=== PATIENT | female | born 1940 | race Caucasian/White ===

== ENCOUNTER 2025-02-07 11:15 | Inpatient (IN) ==
[2025-02-07 15:21] LABS: Basophils # (Auto) 0.04 K/mcL (0.00-0.30); Basophils % (Auto) 0.6 % (0.0-2.0); Eosinophils # (Auto) 0.05 K/mcL (0.00-0.70); Eosinophils % (Auto) 0.8 % (0.0-7.0); Hematocrit 41.8 % (34.1-44.9); Hemoglobin 13.6 g/dL (11.2-15.7); Lymphocytes # (Auto) 1.66 K/mcL (1.50-4.80); Lymphocytes % (Auto) 25.7 % (15.5-49.0); Mean Corpuscular HGB Conc 32.5 g/dL (31.0-36.0); Monocytes # (Auto) 0.43 K/mcL (0.10-0.90); Monocytes % (Auto) 6.6 % (1.0-12.0); Neutrophils % (Auto) 66.3 % (38.0-78.0); Platelet Count 113 K/mcL (140-440); RBC 4.38 M/mcL (3.59-5.38); WBC 6.5 K/mcL (4.5-11.0)
[2025-02-07 15:28] LABS: ALT/SGPT 9 U/L (<40); AST/SGOT 18 U/L (<32); Albumin 3.7 gm/dL (3.2-5.2); Albumin/Globulin Ratio 1.5 (1.0-2.3); Alkaline Phosphatase 78 U/L (39-117); Anion Gap 9.0 (8.0-16.0); Bilirubin,Total 0.4 mg/dL (0.1-1.0); Blood Urea Nitrogen 20 mg/dL (8-23); Calcium 9.1 mg/dL (8.6-10.4); Carbon Dioxide 26 mmol/L (22-30); Chloride 108 mmol/L (96-108); Globulin 2.5 gm/dL (2.2-3.7); Glucose 88 mg/dL (70-105); Potassium 4.0 mmol/L (3.3-5.1); Sodium 143 mmol/L (133-145)
[2025-02-07] MEDS ORDERED: POTASSIUM CHLORIDE 40 MEQ in DEXTROSE 5% IN WATER 500 ML IV PRN (16:44)
[2025-02-07] MEDS ORDERED: POLYETHYLENE GLYCOL 3350 17 GM PACKET PO PRN (16:44)
[2025-02-07] MEDS ORDERED: METOCLOPRAMIDE 10 MG/2 ML VIAL IV PRN (16:44)
[2025-02-07] MEDS ORDERED: POTASSIUM CHLORIDE 20 MEQ TABLET PO PRN ×2 (16:44)
[2025-02-07] MEDS ORDERED: SENNOSIDES 1 TABLET PO PRN (16:44)
[2025-02-07] MEDS ORDERED: DIAZEPAM 10 MG/2 ML SYRINGE IV PRN (16:44)
[2025-02-07] MEDS ORDERED: IPRATROPIUM/ALBUTEROL 3 ML AMPUL.NEB NEB PRN (16:44)
[2025-02-07] MEDS ORDERED: MAGNESIUM SULFATE 2 GM/50 ML BAG IV PRN (16:44)
[2025-02-07] MEDS ORDERED: ACETAMINOPHEN 325 MG TABLET PO PRN (16:44)
[2025-02-07] MEDS ORDERED: ONDANSETRON 4 MG/2 ML VIAL IV PRN (16:44)
[2025-02-07] MEDS: HEPARIN 5,000 UNIT/ML VIAL SQ SCH (22:06)
[2025-02-07] MEDS: PREGABALIN 100 MG CAPSULE PO SCH (22:09)
[2025-02-07] MEDS: 0.9 % SODIUM CHLORIDE 10 ML SYRINGE IV SCH (22:10)
[2025-02-07] MEDS: SIMVASTATIN 20 MG TABLET PO SCH (22:10)
[2025-02-07] MEDS: DOCUSATE SODIUM 100 MG CAPSULE PO SCH (22:10)
[2025-02-10] MEDS: METHOCARBAMOL 1,000 MG/10 ML VIAL IV PRN (08:48)
== END 2025-02-10 13:49 | DRG 538 ==
LOC: ED 11:15 → MEDSUR 16:37
PROVIDERS: ADMIT Internal Medicine; ATTEND Internal Medicine